=== PATIENT | female | born 1940 | race Asian ===

== ENCOUNTER 2018-03-21 15:43 | Inpatient (IN) | payer MEDICARE, MEDICAID ==
[~2018-03-21] VITALS: Ht 149.9 cm; Wt 59.7 kg
[~2018-03-21 15:43] MED LIST: ACET-784 PO; AMIN30LI28 PO; APIX5TAB PO; AUD NEB; BISA10S PR; CLON-570 PO; CLON1PAT12 TD; DOCU250C91 PO; INSNOV SQ; LACT30L PO; NITR.4 SL; NUT.237L66 PO; ONDA4 PO; PERCT10 PO; SENN-175 PO; SEVE800PW PO; TIMO.25OS OS
[2018-03-21] MEDS ORDERED: INSREG SQ (16:10)
[2018-03-21] MEDS ORDERED: SIME80 PO (16:10)
[2018-03-21 16:13] LABS: GLUCOSE,POINT OF CARE 186 MG/DL (70-110)
[2018-03-21] MEDS ORDERED: VANC125C5 PO (16:13)
[2018-03-21] MEDS ORDERED: METO-296 PO (16:13)
[2018-03-21 16:37] LABS: BASOPHILS % (AUTO) 0.4 % (0.0-2.0); HEMATOCRIT 38.8 % (36-46); HEMOGLOBIN 12.8 g/dL (12.0-16.0); LYMPHOCYTES # (AUTO) 1.2 K/uL (1.0-4.8); LYMPHOCYTES % (AUTO) 23.9 % (22.0-44.0); MEAN CORPUSCULAR HEMOGLOBIN 32.2 pg (26.0-34.0); MEAN CORPUSCULAR VOLUME 98 fL (80-100); MONOCYTES # (AUTO) 0.5 K/uL (0.1-1.0); MONOCYTES % (AUTO) 9.2 % (2.0-9.0); NEUTROPHILS # (AUTO) 2.8 K/uL (1.8-7.7); NEUTROPHILS % (AUTO) 55.5 % (40.0-70.0); PLATELET COUNT (AUTO) 103 K/uL (150-450); RED BLOOD CELL COUNT(AUTO) 3.97 MIL/uL (4.00-5.20); RED CELL DISTRIBUTION WIDTH 15.3 % (11.5-14.5)
[2018-03-21 16:48] LABS: PROTHROMBIN TIME 10.4 SEC (9.4-11.6)
[2018-03-21 16:51] LABS: CALCIUM, TOTAL 7.7 mg/dL (8.8-10.5); CREATININE 3.8 mg/dL (0.60-1.30); POTASSIUM 5.6 mmol/L (3.5-5.1)
[2018-03-21 16:56] LABS: AMMONIA 15 umol/L (11-32)
[2018-03-21 17:01] LABS: ALBUMIN 2.5 g/dL (3.4-5.0); BILIRUBIN,TOTAL 0.4 mg/dL (0.1-1.0); TOTAL PROTEIN, SERUM 5.2 g/dL (6.4-8.2)
[2018-03-21 17:02] LABS: TROPONIN I < 0.02 ng/mL (0.00-0.05)
[2018-03-21 17:03] LABS: LACTIC ACID 1.1 mmol/L (0.4-2.0)
[2018-03-21] MEDS ORDERED: SODIUM POLYSTYRENE SULFONATE 15 GM/60 ML SUSPENSION BOTTLE PO ONE (17:15)
[2018-03-21] MEDS ORDERED: DEXTROSE 50%-WATER 25 GM/50 ML SYRINGE IVP ONE (17:15)
[2018-03-21] MEDS ORDERED: INSULIN REGULAR, HUMAN 100 UNITS/ML IVP ONE (17:15)
[2018-03-21] MEDS ORDERED: ACETAMINOPHEN 325 MG TABLET PO PRN (19:15)
[2018-03-21] MEDS ORDERED: ONDANSETRON HCL 4 MG/2 ML VIAL IVP PRN ×2 (19:15→19:45)
[2018-03-21] MEDS ORDERED: 0.9% SODIUM CHLORIDE 10 ML SYRINGE IVP PRN (19:15)
[2018-03-21] MEDS ORDERED: ALBUTEROL SULFATE 2.5 MG/0.5 ML NEB SOLUTION NEB PRN (19:45)
[2018-03-21] MEDS ORDERED: IPRATROPIUM BROMIDE 0.5 MG/2.5 ML NEB SOLUTION NEB PRN (19:45)
[2018-03-21] MEDS ORDERED: BISACODYL 10 MG RECTAL RECTAL SUPPOSITORY PR PRN (19:45)
[2018-03-21] MEDS ORDERED: DEXTROSE 50%-WATER 25 GM/50 ML SYRINGE IVP PRN (19:45)
[2018-03-21] MEDS ORDERED: MAGNESIUM HYDROXIDE SUSPENSION 30 ML UDCUP PO PRN (19:45)
[2018-03-21 20:26] VITALS: BP 161/78
[2018-03-21] MEDS: ACETAMINOPHEN 325 MG TABLET PO PRN (20:44)
[2018-03-21] MEDS: ZOLPIDEM TARTRATE 5 MG TABLET PO PRN (21:13)
[2018-03-21 21:23] LABS: GLUCOSE,POINT OF CARE 194 MG/DL (70-110)
[2018-03-21 21:23] LABS: GLUCOSE,POINT OF CARE 250 MG/DL (70-110)
[2018-03-21 23:58] VITALS: BP 165/99
[2018-03-22] VITALS (8 sets, daily range): BP systolic 133–183; BP diastolic 74–106
[2018-03-22] MEDS: OxyCODONE HCL/ACETAMINOPHEN 5-325 MG TABLET PO PRN ×4 (01:50→23:43)
[2018-03-22] MEDS: ACETAMINOPHEN 325 MG TABLET PO PRN ×2 (05:59→19:47)
[2018-03-22 06:45] LABS: BASOPHILS % (AUTO) 0.5 % (0.0-2.0); HEMATOCRIT 34.1 % (36-46); HEMOGLOBIN 11.5 g/dL (12.0-16.0); LYMPHOCYTES # (AUTO) 1.6 K/uL (1.0-4.8); LYMPHOCYTES % (AUTO) 35.6 % (22.0-44.0); MEAN CORPUSCULAR HEMOGLOBIN 32.7 pg (26.0-34.0); MEAN CORPUSCULAR HGB CONC 33.8 G/dL (31.0-37.0); MEAN CORPUSCULAR VOLUME 97 fL (80-100); MONOCYTES # (AUTO) 0.5 K/uL (0.1-1.0); MONOCYTES % (AUTO) 11.3 % (2.0-9.0); NEUTROPHILS # (AUTO) 1.8 K/uL (1.8-7.7); NEUTROPHILS % (AUTO) 38.6 % (40.0-70.0); PLATELET COUNT (AUTO) 108 K/uL (150-450); RED BLOOD CELL COUNT(AUTO) 3.53 MIL/uL (4.00-5.20); RED CELL DISTRIBUTION WIDTH 15.1 % (11.5-14.5)
[2018-03-22 07:18] LABS: GLUCOMETER DEV NAME(LOC) 5S 2Q; GLUCOSE,POINT OF CARE 123 MG/DL (70-110)
[2018-03-22 07:37] LABS: HEMOGLOBIN A1C 5.7 % (4.5-6.2)
[2018-03-22 07:53] LABS: ALBUMIN 2.4 g/dL (3.4-5.0); BILIRUBIN,TOTAL 0.3 mg/dL (0.1-1.0); CALCIUM, TOTAL 7.7 mg/dL (8.8-10.5); CREATININE 3.94 mg/dL (0.60-1.30); PHOSPHORUS 6.2 mg/dL (2.5-4.9); POTASSIUM 5.6 mmol/L (3.5-5.1); TOTAL PROTEIN, SERUM 4.9 g/dL (6.4-8.2)
[2018-03-22] MEDS ORDERED: AmLODIPine BESYLATE 5 MG TABLET PO SCH (09:00)
[2018-03-22] MEDS: VITAMIN B COMP/VIT C/FOLIC ACID CAPSULE PO SCH (09:00)
[2018-03-22] MEDS ORDERED: SODIUM CHLORIDE 0.9% 2,000 ML IV ONE (09:10)
[2018-03-22] MEDS ORDERED: MIDODRINE HCL 5 MG TABLET PO PRN (11:45)
[2018-03-22] MEDS ORDERED: EPOETIN ALFA 10,000 UNITS/ML 2 ML VIAL SQ PRN (11:45)
[2018-03-22] MEDS ORDERED: VITAMIN B COMP/VIT C/FOLIC ACID CAPSULE PO SCH (11:45)
[2018-03-22 12:53] LABS: GLUCOMETER DEV NAME(LOC) 5N 1P; GLUCOSE,POINT OF CARE 122 MG/DL (70-110)
[2018-03-22 12:53] LABS: GLUCOMETER DEV NAME(LOC) 5N 1P; GLUCOSE,POINT OF CARE 128 MG/DL (70-110)
[2018-03-22] MEDS: SEVELAMER CARBONATE 800 MG POWDER PACKET PO SCH (13:02)
[2018-03-22] MEDS ORDERED: ALBUMIN HUMAN 25%-12.5GM/50ML IV BOTTLE IV ONE (17:40)
[2018-03-22] MEDS ORDERED: HEPARIN SODIUM,PORCINE 1,000 UNITS/ML VIAL IVP ONE (17:40)
[2018-03-22] MEDS: INSULIN LISPRO 100 UNITS/ML SQ PRN ×2 (18:39→21:42)
[2018-03-22] MEDS: ZOLPIDEM TARTRATE 5 MG TABLET PO PRN (21:37)
[2018-03-23 05:24] VITALS: BP 157/86
[2018-03-23 06:33] LABS: GLUCOMETER DEV NAME(LOC) 5N 1P; GLUCOSE,POINT OF CARE 214 MG/DL (70-110)
[2018-03-23 06:34] LABS: GLUCOMETER DEV NAME(LOC) 5N 1P; GLUCOSE,POINT OF CARE 167 MG/DL (70-110)
[2018-03-23 06:34] LABS: GLUCOMETER DEV NAME(LOC) 5N 1P; GLUCOSE,POINT OF CARE 115 MG/DL (70-110)
[2018-03-23 08:09] VITALS: BP 159/81
[2018-03-23] MEDS: ACETAMINOPHEN 325 MG TABLET PO PRN (08:13)
[2018-03-23] MEDS: SEVELAMER CARBONATE 800 MG POWDER PACKET PO SCH (08:13)
[2018-03-23] MEDS: VITAMIN B COMP/VIT C/FOLIC ACID CAPSULE PO SCH (08:13)
[2018-03-23] MEDS: [UNRECOGNIZED DRUG - OTHER] MISC SCH (08:21)
[2018-03-23] MEDS: [UNRECOGNIZED DRUG - REMARK] MISC SCH (08:21)
[2018-03-23] MEDS ORDERED: SODIUM CHLORIDE 0.9% 2,000 ML IV ONE (09:32)
[2018-03-23] MEDS ORDERED: ALBUMIN HUMAN 25%-12.5GM/50ML IV BOTTLE IV PRN (10:00)
[2018-03-23] MEDS ORDERED: MANNITOL 25%-12.5 GM/50 ML VIAL IVP PRN (10:00)
[2018-03-23] MEDS ORDERED: HEPARIN SODIUM,PORCINE 1,000 UNITS/ML VIAL IVP ONE ×3 (10:15→17:30)
[2018-03-23 12:06] VITALS: BP 145/93
[2018-03-23] MEDS: OxyCODONE HCL/ACETAMINOPHEN 5-325 MG TABLET PO PRN ×2 (14:51→20:52)
[2018-03-23 16:06] VITALS: BP 159/106
[2018-03-23] MEDS: INSULIN LISPRO 100 UNITS/ML SQ PRN ×2 (18:15→21:13)
[2018-03-23 19:45] VITALS: BP 157/88
[2018-03-23 19:57] LABS: GLUCOMETER DEV NAME(LOC) 5N 1P; GLUCOSE,POINT OF CARE 163 MG/DL (70-110)
[2018-03-23 19:58] LABS: GLUCOMETER DEV NAME(LOC) 5N 1P; GLUCOSE,POINT OF CARE 224 MG/DL (70-110)
[2018-03-23] MEDS: ZOLPIDEM TARTRATE 5 MG TABLET PO PRN (23:41)
[2018-03-23 23:42] VITALS: BP 148/71
[2018-03-24] VITALS (7 sets, daily range): BP systolic 121–161; BP diastolic 69–82
[2018-03-24] MEDS: ACETAMINOPHEN 325 MG TABLET PO PRN (00:17)
[2018-03-24] MEDS: OxyCODONE HCL/ACETAMINOPHEN 5-325 MG TABLET PO PRN ×4 (04:13→21:51)
[2018-03-24 06:18] LABS: GLUCOMETER DEV NAME(LOC) 5N 1P; GLUCOSE,POINT OF CARE 152 MG/DL (70-110)
[2018-03-24 06:18] LABS: GLUCOMETER DEV NAME(LOC) 5N 1P; GLUCOSE,POINT OF CARE 140 MG/DL (70-110)
[2018-03-24] MEDS: SEVELAMER CARBONATE 800 MG POWDER PACKET PO SCH (08:15)
[2018-03-24] MEDS: VITAMIN B COMP/VIT C/FOLIC ACID CAPSULE PO SCH (08:15)
[2018-03-24] MEDS: [UNRECOGNIZED DRUG - OTHER] MISC SCH (08:25)
[2018-03-24] MEDS: [UNRECOGNIZED DRUG - REMARK] MISC SCH (08:26)
[2018-03-24] MEDS: METOPROLOL TARTRATE 25 MG TABLET PO SCH ×2 (10:06→21:20)
[2018-03-24] MEDS: INSULIN LISPRO 100 UNITS/ML SQ PRN ×3 (12:05→21:53)
[2018-03-24 12:08] LABS: GLUCOMETER DEV NAME(LOC) 5N 1P; GLUCOSE,POINT OF CARE 163 MG/DL (70-110)
[2018-03-24 19:02] LABS: GLUCOMETER DEV NAME(LOC) 5N 1P; GLUCOSE,POINT OF CARE 177 MG/DL (70-110)
[2018-03-24] MEDS: MUPIROCIN CALCIUM 2% 22 GM OINTMENT NASAL SCH (21:20)
[2018-03-24] MEDS: ZOLPIDEM TARTRATE 5 MG TABLET PO PRN (22:59)
[2018-03-25] MEDS: OxyCODONE HCL/ACETAMINOPHEN 5-325 MG TABLET PO PRN ×4 (02:04→20:24)
[2018-03-25 04:30] VITALS: BP 128/71
[2018-03-25] MEDS: INSULIN LISPRO 100 UNITS/ML SQ PRN ×3 (06:25→17:24)
[2018-03-25 07:16] VITALS: BP 126/70
[2018-03-25 07:43] LABS: GLUCOMETER DEV NAME(LOC) 5N 1P; GLUCOSE,POINT OF CARE 155 MG/DL (70-110)
[2018-03-25] MEDS: MUPIROCIN CALCIUM 2% 22 GM OINTMENT NASAL SCH ×2 (08:23→20:25)
[2018-03-25] MEDS: SEVELAMER CARBONATE 800 MG POWDER PACKET PO SCH (08:23)
[2018-03-25] MEDS: [UNRECOGNIZED DRUG - REMARK] MISC SCH (09:00)
[2018-03-25] MEDS: METOPROLOL TARTRATE 25 MG TABLET PO SCH ×2 (09:00→20:24)
[2018-03-25 11:21] VITALS: BP 132/75
[2018-03-25] MEDS ORDERED: HEPARIN SODIUM,PORCINE 1,000 UNITS/ML VIAL IVP ONE ×2 (15:15)
[2018-03-25] MEDS ORDERED: MANNITOL 25%-12.5 GM/50 ML VIAL IVP PRN (15:15)
[2018-03-25 15:23] VITALS: BP 174/64
[2018-03-25] MEDS ORDERED: GuaiFENesin/D-METHORPHAN [SUGAR-FREE] 200-20MG/10 ML SYRUP UDCUP PO PRN (15:45)
[2018-03-25 17:08] LABS: GLUCOMETER DEV NAME(LOC) 5N 2S; GLUCOSE,POINT OF CARE 124 MG/DL (70-110)
[2018-03-25 17:08] LABS: GLUCOMETER DEV NAME(LOC) 5N 2S; GLUCOSE,POINT OF CARE 191 MG/DL (70-110)
[2018-03-25] MEDS: VITAMIN B COMP/VIT C/FOLIC ACID CAPSULE PO SCH (17:22)
[2018-03-25] MEDS: [UNRECOGNIZED DRUG - OTHER] MISC SCH (17:23)
[2018-03-25 19:47] VITALS: BP 145/78
[2018-03-25] MEDS: ZOLPIDEM TARTRATE 5 MG TABLET PO PRN (22:07)
[2018-03-25 22:23] LABS: GLUCOMETER DEV NAME(LOC) 5S 1M; GLUCOSE,POINT OF CARE 140 MG/DL (70-110)
[2018-03-25 23:40] VITALS: BP 155/75
[2018-03-26] MEDS: OxyCODONE HCL/ACETAMINOPHEN 5-325 MG TABLET PO PRN ×3 (01:07→10:29)
[2018-03-26 02:07] LABS: GLUCOMETER DEV NAME(LOC) 5S 2Q; GLUCOSE,POINT OF CARE 143 MG/DL (70-110)
[2018-03-26 03:25] VITALS: BP 149/71
[2018-03-26 05:38] LABS: GLUCOMETER DEV NAME(LOC) 5S 1M; GLUCOSE,POINT OF CARE 163 MG/DL (70-110)
[2018-03-26] MEDS: INSULIN LISPRO 100 UNITS/ML SQ PRN ×2 (05:44→12:27)
[2018-03-26] MEDS ORDERED: HEPARIN SODIUM,PORCINE 1,000 UNITS/ML VIAL IVP ONE (06:52)
[2018-03-26 07:32] VITALS: BP 120/56
[2018-03-26] MEDS: VITAMIN B COMP/VIT C/FOLIC ACID CAPSULE PO SCH (08:05)
[2018-03-26] MEDS: MUPIROCIN CALCIUM 2% 22 GM OINTMENT NASAL SCH (08:05)
[2018-03-26] MEDS: METOPROLOL TARTRATE 25 MG TABLET PO SCH (08:05)
[2018-03-26] MEDS: [UNRECOGNIZED DRUG - OTHER] MISC SCH (08:06)
[2018-03-26] MEDS: SEVELAMER CARBONATE 800 MG POWDER PACKET PO SCH (08:06)
[2018-03-26] MEDS: [UNRECOGNIZED DRUG - REMARK] MISC SCH (08:06)
[2018-03-26 10:35] LABS: BASOPHILS % (AUTO) 0.9 % (0.0-2.0); EOSINOPHILS % (AUTO) 12.1 % (1.0-6.0); HEMOGLOBIN 10.8 g/dL (12.0-16.0); LYMPHOCYTES # (AUTO) 1.2 K/uL (1.0-4.8); LYMPHOCYTES % (AUTO) 27.7 % (22.0-44.0); MEAN CORPUSCULAR HEMOGLOBIN 31.8 pg (26.0-34.0); MEAN CORPUSCULAR HGB CONC 32.8 G/dL (31.0-37.0); MEAN CORPUSCULAR VOLUME 97 fL (80-100); MONOCYTES # (AUTO) 0.5 K/uL (0.1-1.0); MONOCYTES % (AUTO) 12.6 % (2.0-9.0); NEUTROPHILS % (AUTO) 46.7 % (40.0-70.0); RED BLOOD CELL COUNT(AUTO) 3.39 MIL/uL (4.00-5.20); RED CELL DISTRIBUTION WIDTH 15.1 % (11.5-14.5)
[2018-03-26 10:38] LABS: CREATININE 2.97 mg/dL (0.60-1.30); POTASSIUM 5.6 mmol/L (3.5-5.1)
[2018-03-26 10:40] LABS: PLATELET COUNT (AUTO) 79 K/uL (150-450)
[2018-03-26 10:44] LABS: ALBUMIN 2.6 g/dL (3.4-5.0); BILIRUBIN,TOTAL 0.3 mg/dL (0.1-1.0); TOTAL PROTEIN, SERUM 5.2 g/dL (6.4-8.2)
[2018-03-26] MEDS ORDERED: SODIUM POLYSTYRENE SULFONATE 15 GM/60 ML SUSPENSION BOTTLE PO ONE (12:45)
[2018-03-26] MEDS ORDERED: METO25 PO (13:41)
[2018-03-26] MEDS ORDERED: FOLI1CAP2 PO (13:43)
[2018-03-26] MEDS ORDERED: EPOE10003 (13:46)
[2018-03-26] MEDS ORDERED: IPRA3AMP4 NEB (13:47)
[2018-03-26] MEDS ORDERED: MIDO5TAB23 PO (13:50)
[2018-03-26] MEDS ORDERED: OXYC-530 PO (13:51)
[2018-03-26] MEDS ORDERED: ZOLP5 PO (13:55)
[2018-03-26 15:34] VITALS: BP 138/62
[2018-03-28 00:33] LABS: GLUCOMETER DEV NAME(LOC) 5N 2S; GLUCOSE,POINT OF CARE 163 MG/DL (70-110)
== END 2018-03-26 15:20 | DRG 70 ==
LOC: EMS 15:44 → 5N 19:09
PROVIDERS: ADMIT Internal Medicine; ATTEND Internal Medicine
PROC: 5A1D70Z Performance of Urinary Filtration, Intermittent, Less than 6 Hours Per Day (ICD-10-PCS; principal; 2018-03-22)
PROC: 5A1D70Z Performance of Urinary Filtration, Intermittent, Less than 6 Hours Per Day (ICD-10-PCS; 2018-03-23)
PROC: 5A1D70Z Performance of Urinary Filtration, Intermittent, Less than 6 Hours Per Day (ICD-10-PCS; 2018-03-25)
DX: G93.40 Encephalopathy, unspecified (principal); N18.6 End stage renal disease; I13.2 Hypertensive heart and chronic kidney disease with heart failure and with stage 5 chronic kidney disease, or end stage renal disease; E44.0 Moderate protein-calorie malnutrition; D69.6 Thrombocytopenia, unspecified; E11.22 Type 2 diabetes mellitus with diabetic chronic kidney disease; E11.43 Type 2 diabetes mellitus with diabetic autonomic (poly)neuropathy; E11.65 Type 2 diabetes mellitus with hyperglycemia; E87.1 Hypo-osmolality and hyponatremia; E87.5 Hyperkalemia; R55 Syncope and collapse; E55.9 Vitamin D deficiency, unspecified; D50.9 Iron deficiency anemia, unspecified; I67.2 Cerebral atherosclerosis; M19.90 Unspecified osteoarthritis, unspecified site; G89.29 Other chronic pain; M85.80 Other specified disorders of bone density and structure, unspecified site; I50.9 Heart failure, unspecified; I25.10 Atherosclerotic heart disease of native coronary artery without angina pectoris; Z96.649 Presence of unspecified artificial hip joint; S32.401D Unspecified fracture of right acetabulum, subsequent encounter for fracture with routine healing; S32.501D Unspecified fracture of right pubis, subsequent encounter for fracture with routine healing; Z99.2 Dependence on renal dialysis; Z95.1 Presence of aortocoronary bypass graft; Z91.81 History of falling; Z79.899 Other long term (current) drug therapy; Z88.8 Allergy status to other drugs, medicaments and biological substances; Z86.718 Personal history of other venous thrombosis and embolism; Z83.3 Family history of diabetes mellitus; Y93.89 Activity, other specified; Y92.89 Other specified places as the place of occurrence of the external cause; Y99.8 Other external cause status
CPT/HCPCS: 70450; 82948; 83036; 83605; 83735; 84100; 84132; 87081; 90935; 93005; 93306; 93880; 96374; 96375; 97163; 97167; 97530; 97535; 99285; G0480; J0885; J1644; J1815; J7030; P9047

== ENCOUNTER 2018-06-01 06:53 | Inpatient (IN) | payer MEDICARE, MEDICAID ==
[~2018-06-01] VITALS: Ht 144.8 cm; Wt 55.2 kg
[~2018-06-01 06:53] MED LIST changes: -AMIN30LI28 PO; -APIX5TAB PO; -AUD NEB; +EPOE10003; +FOLI1CAP2 PO; -INSNOV SQ; +INSREG SQ; +IPRA3AMP23 NEB; -LACT30L PO; +METO-296 PO; +METO25 PO; +MIDO5TAB23 PO; -NUT.237L66 PO; -ONDA4 PO; +OXYC-530 PO; -PERCT10 PO; +SIME80 PO; -TIMO.25OS OS; +ZOLP5 PO
[2018-06-01] MEDS ORDERED: TIMO.25OS OU (07:06)
[2018-06-01] MEDS ORDERED: RIVA20TA PO (07:06)
[2018-06-01] MEDS ORDERED: INSU100V SQ (07:06)
[2018-06-01 07:09] LABS: GLUCOSE,POINT OF CARE 157 MG/DL (70-110)
[2018-06-01] MEDS ORDERED: PANTOPRAZOLE SODIUM 40 MG/VIAL IVP ONE (07:30)
[2018-06-01 07:33] LABS: BASOPHILS % (AUTO) 0.4 % (0.0-2.0); EOSINOPHILS % (AUTO) 0.7 % (1.0-6.0); HEMATOCRIT 37.7 % (36-46); HEMOGLOBIN 12.5 g/dL (12.0-16.0); LYMPHOCYTES # (AUTO) 1.1 K/uL (1.0-4.8); LYMPHOCYTES % (AUTO) 10.4 % (22.0-44.0); MEAN CORPUSCULAR HEMOGLOBIN 31.3 pg (26.0-34.0); MEAN CORPUSCULAR HGB CONC 33.2 G/dL (31.0-37.0); MEAN CORPUSCULAR VOLUME 94 fL (80-100); MONOCYTES # (AUTO) 0.4 K/uL (0.1-1.0); MONOCYTES % (AUTO) 3.8 % (2.0-9.0); NEUTROPHILS % (AUTO) 84.7 % (40.0-70.0); PLATELET COUNT (AUTO) 189 K/uL (150-450); RED BLOOD CELL COUNT(AUTO) 4.01 MIL/uL (4.00-5.20)
[2018-06-01 07:43] LABS: PROTHROMBIN TIME 10.8 SEC (9.4-11.6)
[2018-06-01 07:51] LABS: CHLORIDE 91 mmol/L (98-107); CREATININE 4.04 mg/dL (0.60-1.30); GLOMERULAR FILTR. RATE CALC 11 mL/min (>60); GLUCOSE,RANDOM 174 mg/dL (70-110); POTASSIUM 3.1 mmol/L (3.5-5.1); SODIUM SERUM 145 mmol/L (136-145); UREA NITROGEN, BLOOD 37 mg/dL (7-18)
[2018-06-01 07:58] LABS: ALANINE AMINOTRANSFERASE 17 U/L (12-78); ALBUMIN 3.6 g/dL (3.4-5.0); ALKALINE PHOSPHATASE 113 U/L (46-116); ASPARTATE AMINOTRANSFERASE 24 U/L (15-37); BILIRUBIN,TOTAL 1.3 mg/dL (0.1-1.0); CREATINE KINASE, TOTAL 48 U/L (26-192); TOTAL PROTEIN, SERUM 6.8 g/dL (6.4-8.2)
[2018-06-01 08:03] LABS: ANION GAP 4 mmol/L (8-16); CARBON DIOXIDE 50 mmol/L (22-29)
[2018-06-01 08:04] LABS: B-TYPE NATRIURETIC PEPTIDE 3930 pg/mL (0-100)
[2018-06-01] MEDS ORDERED: POTASSIUM CHLORIDE 10% 40 MEQ/30 ML LIQUID UDCUP PO ONE (09:00)
[2018-06-01] MEDS ORDERED: BISACODYL 10 MG RECTAL RECTAL SUPPOSITORY PR PRN (09:00)
[2018-06-01] MEDS ORDERED: DEXTROSE 50%-WATER 25 GM/50 ML SYRINGE IVP PRN (09:00)
[2018-06-01] MEDS ORDERED: CloNIDine HCL 0.1 MG TABLET PO PRN (09:00)
[2018-06-01] MEDS ORDERED: INSULIN LISPRO 100 UNITS/ML SQ PRN (09:00)
[2018-06-01] MEDS ORDERED: HydrALAZINE HCL 20 MG/ML VIAL IVP PRN (09:15)
[2018-06-01] MEDS ORDERED: ONDANSETRON HCL 4 MG/2 ML VIAL IVP ONE (09:15)
[2018-06-01 11:49] VITALS: BP 145/70
[2018-06-01] MEDS: DOCUSATE SODIUM 100 MG CAPSULE PO SCH ×2 (12:00→21:00)
[2018-06-01] MEDS: METOPROLOL TARTRATE 25 MG TABLET PO SCH ×2 (12:00→21:19)
[2018-06-01] MEDS: AmLODIPine BESYLATE 10 MG TABLET PO SCH (12:00)
[2018-06-01] MEDS ORDERED: BISACODYL 10 MG RECTAL RECTAL SUPPOSITORY PR ONE (14:15)
[2018-06-01 15:20] VITALS: BP 162/80
[2018-06-01] MEDS: ONDANSETRON HCL 4 MG/2 ML VIAL IVP PRN ×2 (16:17→21:40)
[2018-06-01] MEDS: MORPHINE SULFATE 2 MG/ML SYRINGE IVP PRN ×2 (16:18→21:19)
[2018-06-01] MEDS ORDERED: SODIUM CHLORIDE 0.9% 2,000 ML IV ONE (16:32)
[2018-06-01] MEDS: PANTOPRAZOLE SODIUM 40 MG/VIAL IVP SCH (17:44)
[2018-06-01 19:39] LABS: GLUCOMETER DEV NAME(LOC) 5S 2Q; GLUCOSE,POINT OF CARE 140 MG/DL (70-110)
[2018-06-01 21:16] VITALS: BP 118/52
[2018-06-01] MEDS ORDERED: DEXTROSE 5%-0.45% SODIUM CHL 1,000 ML IV PRN (23:55)
[2018-06-02] VITALS (7 sets, daily range): BP systolic 109–156; BP diastolic 55–75
[2018-06-02 01:08] LABS: GLUCOMETER DEV NAME(LOC) 5S 2Q; GLUCOSE,POINT OF CARE 94 MG/DL (70-110)
[2018-06-02] MEDS: ONDANSETRON HCL 4 MG/2 ML VIAL IVP PRN ×2 (04:26→22:27)
[2018-06-02] MEDS: MORPHINE SULFATE 2 MG/ML SYRINGE IVP PRN ×2 (04:27→08:39)
[2018-06-02] MEDS: PANTOPRAZOLE SODIUM 40 MG/VIAL IVP SCH ×2 (05:45→17:37)
[2018-06-02] MEDS: DOCUSATE SODIUM 100 MG CAPSULE PO SCH ×2 (07:57→20:52)
[2018-06-02] MEDS: AmLODIPine BESYLATE 10 MG TABLET PO SCH (07:58)
[2018-06-02] MEDS: METOPROLOL TARTRATE 25 MG TABLET PO SCH ×2 (07:58→20:52)
[2018-06-02 11:43] LABS: GLUCOMETER DEV NAME(LOC) 5S 1M; GLUCOSE,POINT OF CARE 71 MG/DL (70-110)
[2018-06-02 11:43] LABS: GLUCOMETER DEV NAME(LOC) 5S 1M; GLUCOSE,POINT OF CARE 136 MG/DL (70-110)
[2018-06-02 12:43] LABS: BASOPHILS % (AUTO) 0.4 % (0.0-2.0); EOSINOPHILS % (AUTO) 1.3 % (1.0-6.0); HEMATOCRIT 27.9 % (36-46); LYMPHOCYTES # (AUTO) 1.6 K/uL (1.0-4.8); LYMPHOCYTES % (AUTO) 18.2 % (22.0-44.0); MEAN CORPUSCULAR HGB CONC 32.4 G/dL (31.0-37.0); MEAN CORPUSCULAR VOLUME 96 fL (80-100); MONOCYTES # (AUTO) 0.6 K/uL (0.1-1.0); MONOCYTES % (AUTO) 6.2 % (2.0-9.0); NEUTROPHILS # (AUTO) 6.7 K/uL (1.8-7.7); NEUTROPHILS % (AUTO) 73.9 % (40.0-70.0); PLATELET COUNT (AUTO) 161 K/uL (150-450); RED BLOOD CELL COUNT(AUTO) 2.92 MIL/uL (4.00-5.20); RED CELL DISTRIBUTION WIDTH 17.1 % (11.5-14.5)
[2018-06-02 12:51] LABS: CALCIUM, TOTAL 8.7 mg/dL (8.8-10.5); CREATININE 2.75 mg/dL (0.60-1.30); POTASSIUM 4.4 mmol/L (3.5-5.1)
[2018-06-02] MEDS ORDERED: SODIUM CHLORIDE 0.9% 1,000 ML IV ONE (13:46)
[2018-06-02] MEDS: POLYETHYLENE GLYCOL 3350 17 GM PACKET PO SCH ×2 (16:12→20:52)
[2018-06-02] MEDS: ACETAMINOPHEN 325 MG TABLET PO PRN (20:52)
[2018-06-02] MEDS: TIMOLOL MALEATE 0.25% 5 ML OPHTHALMIC SOLUTION OS SCH (20:53)
[2018-06-03] MEDS: MORPHINE SULFATE 2 MG/ML SYRINGE IVP PRN (03:51)
[2018-06-03 04:02] VITALS: BP 112/59
[2018-06-03] MEDS: PANTOPRAZOLE SODIUM 40 MG/VIAL IVP SCH ×2 (05:31→18:14)
[2018-06-03 07:04] LABS: GLUCOMETER DEV NAME(LOC) 5S 1M; GLUCOSE,POINT OF CARE 118 MG/DL (70-110)
[2018-06-03 07:27] LABS: BASOPHILS % (AUTO) 0.5 % (0.0-2.0); EOSINOPHILS % (AUTO) 2.5 % (1.0-6.0); HEMATOCRIT 26.8 % (36-46); HEMOGLOBIN 9.1 g/dL (12.0-16.0); LYMPHOCYTES # (AUTO) 1.8 K/uL (1.0-4.8); LYMPHOCYTES % (AUTO) 26.2 % (22.0-44.0); MEAN CORPUSCULAR HEMOGLOBIN 32.4 pg (26.0-34.0); MEAN CORPUSCULAR HGB CONC 34.1 G/dL (31.0-37.0); MEAN CORPUSCULAR VOLUME 95 fL (80-100); MONOCYTES # (AUTO) 0.7 K/uL (0.1-1.0); MONOCYTES % (AUTO) 10.9 % (2.0-9.0); NEUTROPHILS # (AUTO) 4.1 K/uL (1.8-7.7); NEUTROPHILS % (AUTO) 59.9 % (40.0-70.0); PLATELET COUNT (AUTO) 162 K/uL (150-450); RED BLOOD CELL COUNT(AUTO) 2.82 MIL/uL (4.00-5.20); RED CELL DISTRIBUTION WIDTH 16.7 % (11.5-14.5)
[2018-06-03 07:30] LABS: CALCIUM, TOTAL 8.7 mg/dL (8.8-10.5); CREATININE 3.46 mg/dL (0.60-1.30); MAGNESIUM 1.9 mg/dL (1.80-2.40); PHOSPHORUS 5.6 mg/dL (2.5-4.9); POTASSIUM 4.5 mmol/L (3.5-5.1)
[2018-06-03 07:32] LABS: % IRON SATURATION 32.8 % (22-44)
[2018-06-03] MEDS ORDERED: SODIUM CHLORIDE 0.9% 1,000 ML IV ONE (07:36)
[2018-06-03 07:57] VITALS: BP 115/63
[2018-06-03] MEDS ORDERED: EPOETIN ALFA 10,000 UNITS/ML VIAL SQ SCH (09:00)
[2018-06-03 11:22] VITALS: BP 165/76
[2018-06-03] MEDS: AmLODIPine BESYLATE 10 MG TABLET PO SCH (12:18)
[2018-06-03] MEDS: POLYETHYLENE GLYCOL 3350 17 GM PACKET PO SCH ×2 (12:19→21:10)
[2018-06-03] MEDS: METOPROLOL TARTRATE 25 MG TABLET PO SCH ×2 (12:19→20:52)
[2018-06-03] MEDS: TIMOLOL MALEATE 0.25% 5 ML OPHTHALMIC SOLUTION OS SCH ×2 (12:19→20:54)
[2018-06-03] MEDS: DOCUSATE SODIUM 100 MG CAPSULE PO SCH ×2 (12:19→20:55)
[2018-06-03] MEDS: SOD FERRIC GLUC COMPLX/SUCROSE 125 MG in SODIUM CHLORIDE 0.9% 100 ML IV SCH (12:20)
[2018-06-03 16:24] VITALS: BP 98/46
[2018-06-03] MEDS ORDERED: HEPARIN SODIUM,PORCINE 1,000 UNITS/ML VIAL IVP ONE (16:27)
[2018-06-03 19:43] VITALS: BP 94/55
[2018-06-04 00:30] VITALS: BP 137/66
[2018-06-04] MEDS: MORPHINE SULFATE 2 MG/ML SYRINGE IVP PRN (00:31)
[2018-06-04 05:11] VITALS: BP 129/58
[2018-06-04] MEDS: PANTOPRAZOLE SODIUM 40 MG/VIAL IVP SCH ×2 (06:27→17:30)
[2018-06-04 07:13] LABS: BASOPHILS % (AUTO) 0.6 % (0.0-2.0); EOSINOPHILS % (AUTO) 3.2 % (1.0-6.0); HEMATOCRIT 29.5 % (36-46); HEMOGLOBIN 9.7 g/dL (12.0-16.0); LYMPHOCYTES # (AUTO) 1.8 K/uL (1.0-4.8); MEAN CORPUSCULAR HEMOGLOBIN 31.5 pg (26.0-34.0); MEAN CORPUSCULAR HGB CONC 32.9 G/dL (31.0-37.0); MEAN CORPUSCULAR VOLUME 96 fL (80-100); MONOCYTES # (AUTO) 0.7 K/uL (0.1-1.0); MONOCYTES % (AUTO) 12.2 % (2.0-9.0); NEUTROPHILS # (AUTO) 2.7 K/uL (1.8-7.7); PLATELET COUNT (AUTO) 178 K/uL (150-450); RED BLOOD CELL COUNT(AUTO) 3.07 MIL/uL (4.00-5.20); RED CELL DISTRIBUTION WIDTH 16.8 % (11.5-14.5)
[2018-06-04 07:26] VITALS: BP 124/52
[2018-06-04 08:14] LABS: GLUCOMETER DEV NAME(LOC) 5S 2Q; GLUCOSE,POINT OF CARE 100 MG/DL (70-110)
[2018-06-04 08:14] LABS: GLUCOMETER DEV NAME(LOC) 5S 2Q; GLUCOSE,POINT OF CARE 104 MG/DL (70-110)
[2018-06-04 08:14] LABS: GLUCOMETER DEV NAME(LOC) 5S 2Q; GLUCOSE,POINT OF CARE 147 MG/DL (70-110)
[2018-06-04 08:14] LABS: GLUCOMETER DEV NAME(LOC) 5S 2Q; GLUCOSE,POINT OF CARE 83 MG/DL (70-110)
[2018-06-04 08:14] LABS: GLUCOMETER DEV NAME(LOC) 5S 2Q; GLUCOSE,POINT OF CARE 95 MG/DL (70-110)
[2018-06-04] MEDS: TIMOLOL MALEATE 0.25% 5 ML OPHTHALMIC SOLUTION OS SCH (08:50)
[2018-06-04] MEDS: AmLODIPine BESYLATE 10 MG TABLET PO SCH (08:51)
[2018-06-04] MEDS: DOCUSATE SODIUM 100 MG CAPSULE PO SCH (08:51)
[2018-06-04] MEDS: ACETAMINOPHEN 325 MG TABLET PO PRN ×2 (08:51→16:47)
[2018-06-04] MEDS: POLYETHYLENE GLYCOL 3350 17 GM PACKET PO SCH (08:51)
[2018-06-04] MEDS: METOPROLOL TARTRATE 25 MG TABLET PO SCH (08:51)
[2018-06-04 11:40] VITALS: BP 110/47
[2018-06-04] MEDS: SOD FERRIC GLUC COMPLX/SUCROSE 125 MG in SODIUM CHLORIDE 0.9% 100 ML IV SCH (11:49)
[2018-06-04 15:12] VITALS: BP 107/44
[2018-06-04] MEDS ORDERED: PANT40TA PO (17:28)
[2018-06-05 00:39] LABS: GLUCOMETER DEV NAME(LOC) 5S 1M; GLUCOSE,POINT OF CARE 128 MG/DL (70-110)
[2018-06-05 00:39] LABS: GLUCOMETER DEV NAME(LOC) 5S 1M; GLUCOSE,POINT OF CARE 80 MG/DL (70-110)
[2018-06-06 14:54] LABS: GLUCOMETER DEV NAME(LOC) 5S 2Q; GLUCOSE,POINT OF CARE 134 MG/DL (70-110)
[2018-06-06 14:54] LABS: GLUCOMETER DEV NAME(LOC) 5S 2Q; GLUCOSE,POINT OF CARE 99 MG/DL (70-110)
== END 2018-06-04 20:35 | disposition home or self-care (01) | DRG 377 ==
LOC: EMS 06:53 → 5S 10:20
PROVIDERS: ADMIT Internal Medicine; ATTEND Internal Medicine
PROC: 5A1D70Z Performance of Urinary Filtration, Intermittent, Less than 6 Hours Per Day (ICD-10-PCS; 2018-06-01)
PROC: 0DJ08ZZ Inspection of Upper Intestinal Tract, Via Natural or Artificial Opening Endoscopic (ICD-10-PCS; principal; 2018-06-02 13:00)
PROC: 5A1D70Z Performance of Urinary Filtration, Intermittent, Less than 6 Hours Per Day (ICD-10-PCS; 2018-06-03)
DX: K92.2 Gastrointestinal hemorrhage, unspecified (principal); N18.6 End stage renal disease; E43 Unspecified severe protein-calorie malnutrition; I13.2 Hypertensive heart and chronic kidney disease with heart failure and with stage 5 chronic kidney disease, or end stage renal disease; K22.10 Ulcer of esophagus without bleeding; Z99.2 Dependence on renal dialysis; E11.22 Type 2 diabetes mellitus with diabetic chronic kidney disease; D63.8 Anemia in other chronic diseases classified elsewhere; I25.10 Atherosclerotic heart disease of native coronary artery without angina pectoris; I50.9 Heart failure, unspecified; K92.0 Hematemesis; Z79.4 Long term (current) use of insulin; Z95.1 Presence of aortocoronary bypass graft; Z96.649 Presence of unspecified artificial hip joint; N28.9 Disorder of kidney and ureter, unspecified; Z88.8 Allergy status to other drugs, medicaments and biological substances; Z22.322 Carrier or suspected carrier of Methicillin resistant Staphylococcus aureus; Z79.82 Long term (current) use of aspirin; Z79.899 Other long term (current) drug therapy
CPT/HCPCS: 74019; 83540; 83550; 83735; 84100; 86850; 86900; 86901; 87081; 87340; 93005; 93306; 96374; 96375; 99285; C9113; J0360; J0885; J1644; J2270; J2405; J2916; J7030; J7050